=== PATIENT | male | born 2000 | race Caucasian/White ===

== ENCOUNTER 2022-05-27 23:27 | Emergency (ER) | payer MEDICAID ==
[~2022-05-27] VITALS: Ht 177.8 cm; Wt 70.0 kg
[2022-05-27 23:34] VITALS: BP 114/85
== END 2022-05-28 07:12 | disposition left against medical advice (07) ==
LOC: ER 23:51
DX: F10.129 Alcohol abuse with intoxication, unspecified (principal); Y90.0 Blood alcohol level of less than 20 mg/100 ml
CPT/HCPCS: 99281